=== PATIENT | female | born 2000 | race Caucasian/White ===

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

== ENCOUNTER 2020-08-23 23:18 | Emergency (ER) | payer BC, MEDICAID, OTHER ==
[~2020-08-23] VITALS: Ht 160 cm; Wt 111.8 kg
[2020-08-23] MEDS ORDERED: METR-265 PO (23:29)
[2020-08-23] MEDS ORDERED: IBUP80TA PO (23:29)
[2020-08-23] MEDS ORDERED: CIPR500T39 PO (23:29)
[2020-08-24] MEDS ORDERED: NS 1,000 ML IV ONE (04:00)
[2020-08-24 05:06] LABS: BASO # 0.1 10^3/uL (0.0-0.2); BASO % 0.6 % (0.0-1.0); EOS # 0.2 10^3/uL (0.0-0.5); EOS % 2.1 % (0.0-3.0); HEMATOCRIT 37.4 % (36.0-47.0); HEMOGLOBIN 12.1 g/dl (12.0-15.5); LYMPH # 3.7 10^3/uL (1.5-5.0); LYMPH % 31.7 % (24.0-44.0); MEAN CORPUSCULAR HEMOGLOBIN 27.6 pg (27.0-33.0); MEAN CORPUSCULAR HGB CONC 32.4 g/dl (32.0-36.5); MEAN CORPUSCULAR VOLUME 85.4 fl (80.0-96.0); MONO # 0.9 10^3/uL (0.0-0.8); MONO % 7.5 % (2.0-8.0); NEUTROPHILS # 6.6 10^3/uL (1.5-8.5); NEUTROPHILS % 57.6 % (36.0-66.0); PLATELET COUNT, AUTOMATED 259 10^3/uL (150-450); RED BLOOD COUNT 4.38 10^6/uL (4.00-5.40); WHITE BLOOD COUNT 11.5 10^3/uL (4.0-10.0)
[2020-08-24 05:33] LABS: HCG, SERUM QUALITATIVE NEGATIVE (NEGATIVE)
[2020-08-24 05:35] LABS: ALBUMIN 3.6 GM/DL (3.2-5.2); ALT/SGPT 20 U/L (12-78); BILIRUBIN,DIRECT < 0.1 MG/DL (0.0-0.2); BILIRUBIN,TOTAL 0.2 MG/DL (0.2-1.0); BLOOD UREA NITROGEN 16 MG/DL (7-18); CALCIUM LEVEL 8.7 MG/DL (8.5-10.1); CARBON DIOXIDE LEVEL 25 MEQ/L (21-32); CHLORIDE LEVEL 112 MEQ/L (98-107); CREATININE FOR GFR 0.91 MG/DL (0.55-1.30); GLUCOSE, FASTING 93 MG/DL (70-100); LIPASE 104 U/L (73-393); POTASSIUM SERUM 4.1 MEQ/L (3.5-5.1); SODIUM LEVEL 144 MEQ/L (136-145); TOTAL PROTEIN 6.7 GM/DL (6.4-8.2)
[2020-08-24] MEDS: GASTROGRAFIN SOLUTION 30ML PO SCH ×2 (06:45→07:08)
[2020-08-24] MEDS ORDERED: ISOVUE-370 76% 100ML VIAL As Ordered ONE (08:25)
--- NOTE | 2020-08-24 09:03 | REP ---
INDICATION: RLQ pain. COMPARISON: None TECHNIQUE: Axial contrast-enhanced images from the lung bases to the pubic symphysis using oral and 100 cc Isovue 370 intravenous contrast material. Coronal and sagittal reformations obtained. This CT examination was performed using the following dose reduction techniques: Automated exposure control, adjustment of mA and/or kv according to the patient's size, and the use of iterative reconstruction technique. FINDINGS: Liver, spleen, pancreas, gallbladder, bilateral adrenal glands and kidneys are normal. The enteric system including stomach, small, and large bowel appears normal. No evidence for obstruction or acute inflammatory process. Normal terminal ileum and cecum are identified in the right lower quadrant. The appendix is not definitively identified. Few right lower quadrant lymph nodes are noted without inflammatory stranding raising the possibility of mesenteric adenitis. Pelvis demonstrates normal bladder and age-appropriate uterus/adnexa No ascites. No free air. No intraperitoneal or retroperitoneal adenopathy. Abdominal aorta and vasculature appear normal. Musculoskeletal structures are intact and without acute osseous abnormality. IMPRESSION: 1. The appendix is not definitively identified, but no inflammatory changes are appreciated to suggest acute appendicitis. Close clinical observation may be warranted. 2. Few pericecal lymph nodes are noted in the right lower quadrant which may reflect mesenteric adenitis and correlation is recommended. 3. No further acute abdominopelvic pathology appreciated or suggested. <Electronically signed by Mateo Dangelo > 08/24/20 [id number]
[2020-08-24 09:34] VITALS: BP 132/73
== END 2020-08-24 09:35 | disposition home or self-care (01) ==
LOC: M ED 23:18
DX: R10.31 Right lower quadrant pain (principal); M54.5 Low back pain; R42 Dizziness and giddiness; R11.0 Nausea; F32.9 Major depressive disorder, single episode, unspecified; F41.9 Anxiety disorder, unspecified; Z88.0 Allergy status to penicillin; Z79.899 Other long term (current) drug therapy
CPT/HCPCS: 74177; 80048; 80076; 81001; 83690; 84703; 85025; 87086; 96360; 96361; 99284; Q9963; Q9967

== ENCOUNTER → 2020-10-26 | Outpatient (CLI) | payer MEDICAID, OTHER ==
[~2020-10-26] MED LIST changes: +CIPR500T39 PO; +IBUP80TA PO; +METR-265 PO
== END ==
LOC: M LAB 08:51
PROVIDERS: ATTEND Physician Assistant Medical
DX: Z33.1 Pregnant state, incidental (principal)

== ENCOUNTER 2022-04-28 14:58 | Emergency (ER) | payer OTHER ==
[~2022-04-28] VITALS: Ht 162.6 cm; Wt 112.0 kg
[2022-04-28 16:01] LABS: BASO # 0.1 10^3/uL (0.0-0.2); BASO % 0.6 % (0.0-1.0); EOS # 0.2 10^3/uL (0.0-0.5); EOS % 2.5 % (0.0-3.0); HEMATOCRIT 38.4 % (36.0-47.0); HEMOGLOBIN 12.5 g/dl (12.0-15.5); LYMPH # 3.7 10^3/uL (1.5-5.0); LYMPH % 37.7 % (24.0-44.0); MEAN CORPUSCULAR HEMOGLOBIN 27.4 pg (27.0-33.0); MEAN CORPUSCULAR HGB CONC 32.6 g/dl (32.0-36.5); MEAN CORPUSCULAR VOLUME 84.2 fl (80.0-96.0); MONO # 0.5 10^3/uL (0.0-0.8); MONO % 5.3 % (2.0-8.0); NEUTROPHILS # 5.2 10^3/uL (1.5-8.5); NEUTROPHILS % 53.5 % (36.0-66.0); PLATELET COUNT, AUTOMATED 255 10^3/uL (150-450); RED BLOOD COUNT 4.56 10^6/uL (4.00-5.40); WHITE BLOOD COUNT 9.7 10^3/uL (4.0-10.0)
[2022-04-28 16:24] LABS: BLOOD UREA NITROGEN 11 MG/DL (9-23); CALCIUM LEVEL 9.3 MG/DL (8.5-10.1); CARBON DIOXIDE LEVEL 25 MMOL/L (20-31); CHLORIDE LEVEL 107 MMOL/L (98-107); CREATININE FOR GFR 0.79 MG/DL (0.55-1.30); GLOMERULAR FILTRATION RATE > 60.0 (>60); GLUCOSE, FASTING 81 MG/DL (60-100); HCG, SERUM QUANTITATIVE < 2.6 MIU/ML (<4.2); POTASSIUM SERUM 3.9 MMOL/L (3.5-5.1); SODIUM LEVEL 141 MMOL/L (136-145)
[2022-04-28] MEDS ORDERED: KETOROLAC TROMETHAMINE 10 MG TAB PO ONE (16:55)
[2022-04-28 20:06] LABS: GC DNA AMPLIFICATION NEGATIVE (NEGATIVE)
[2022-04-28] MEDS ORDERED: IBUP80TA PO (20:28)
[2022-04-28 20:36] VITALS: BP 126/72
== END 2022-04-28 20:37 | disposition home or self-care (01) ==
LOC: M ED 14:58
DX: N93.9 Abnormal uterine and vaginal bleeding, unspecified (principal); R10.2 Pelvic and perineal pain; E28.2 Polycystic ovarian syndrome; F41.9 Anxiety disorder, unspecified; F17.200 Nicotine dependence, unspecified, uncomplicated; Z88.0 Allergy status to penicillin; E66.9 Obesity, unspecified; Z79.899 Other long term (current) drug therapy